=== PATIENT | female | born 1935 ===

== ENCOUNTER 2021-07-30 20:12 | Inpatient (IN) | payer MEDICARE ==
[~2021-07-30] VITALS: Ht 162.6 cm; Wt 57.0 kg
[2021-07-30] MEDS ORDERED: ONDANSETRON 2MG/ML, 2ML IVPush ONE (20:30)
[2021-07-30] MEDS ORDERED: MORPHINE SULFATE 4 MG/ML, 1ML IVPush PRN (20:30)
[2021-07-30 20:49] LABS: BASOPHILS % (AUTO) 0 % (0-1); EOSINOPHILS % (AUTO) 0 % (1-7); LYMPHOCYTES % (AUTO) 10 % (22-44); MEAN CORPUSCULAR HEMOGLOBIN 28.7 pg (27.0-34.8); MEAN CORPUSCULAR HGB CONC 32.8 g/dL (32.4-35.8); MEAN PLATELET VOLUME 8.4 fL (7.4-10.4); MONOCYTES % (AUTO) 5 % (2-9); NEUTROPHILS % (AUTO) 85 % (42-75); PLATELET COUNT 228 x10^3/uL (130-400); RED BLOOD COUNT 4.14 x10^6/uL (3.82-5.3); RED CELL DISTRIBUTION WIDTH 14.4 % (9.6-15.2)
[2021-07-30 20:54] LABS: ALBUMIN 3.5 g/dL (3.4-5.0); ANION GAP 7 mmol/L (5-15); CALCIUM 8.6 mg/dL (8.5-10.1); CHLORIDE 101 mmol/L (98-107); CREATININE 0.88 mg/dL (0.55-1.02)
[2021-07-30] MEDS ORDERED: MORPHINE SULFATE 4 MG/ML, 1ML ONE (21:15)
[2021-07-30] MEDS ORDERED: ONDANSETRON 2MG/ML, 2ML ONE (21:15)
[2021-07-30] MEDS ORDERED: ONDANSETRON 2MG/ML, 2ML IVPush PRN (23:00)
[2021-07-30] MEDS ORDERED: MELATONIN 5 MG TABLET PO PRN (23:00)
[2021-07-30] MEDS ORDERED: GUAIFENESIN/DM 200-20MG, 10ML UDC PO PRN (23:00)
[2021-07-30] MEDS ORDERED: POLYETHYLENE GLYCOL 17 GM PACKET PO PRN (23:00)
[2021-07-30] MEDS ORDERED: LABETALOL 5MG/ML, 20ML IVPush PRN (23:00)
[2021-07-30 23:04] VITALS: BP 182/72
[2021-07-31] MEDS: FAMOTIDINE 20 MG/2 ML IVPush SCH ×2 (00:38→21:12)
[2021-07-31] MEDS: ACETAMINOPHEN 500 MG TABLET PO SCH ×5 (00:40→19:17)
[2021-07-31 02:08] VITALS: BP 170/75
[2021-07-31] MEDS: LACTATED RINGERS 1,000 ML IV SCH ×2 (04:41→19:19)
--- NOTE | 2021-07-31 06:20 | NUR ---
CAITY CRUZ SUPERVISED PLACEMENT OF [place]
[2021-07-31 06:23] LABS: BASOPHILS % (AUTO) 0 % (0-1); EOSINOPHILS % (AUTO) 0 % (1-7); LYMPHOCYTES % (AUTO) 19 % (22-44); MEAN CORPUSCULAR HEMOGLOBIN 29.1 pg (27.0-34.8); MEAN CORPUSCULAR HGB CONC 33.2 g/dL (32.4-35.8); MEAN PLATELET VOLUME 8.2 fL (7.4-10.4); MONOCYTES % (AUTO) 10 % (2-9); NEUTROPHILS % (AUTO) 71 % (42-75); PLATELET COUNT 197 x10^3/uL (130-400); RED BLOOD COUNT 3.85 x10^6/uL (3.82-5.3); RED CELL DISTRIBUTION WIDTH 14.2 % (9.6-15.2)
[2021-07-31 06:29] LABS: ANION GAP 7 mmol/L (5-15); CALCIUM 8.1 mg/dL (8.5-10.1); CHLORIDE 100 mmol/L (98-107)
[2021-07-31 06:30] LABS: CREATININE 0.81 mg/dL (0.55-1.02)
[2021-07-31 08:39] VITALS: BP 125/63
[2021-07-31] MEDS ORDERED: MORPHINE SULFATE 4 MG/ML, 1ML ONE ×2 (09:59→13:32)
[2021-07-31] MEDS: morphine SULFATE 10 MG/ML, 1ML IVPush PRN ×2 (10:03→13:36)
[2021-07-31] MEDS: ENOXAPARIN 40 MG/0.4 ML SQ SCH (10:07)
[2021-07-31 13:44] VITALS: BP 155/78
[2021-07-31 18:18] VITALS: BP 152/77
[2021-07-31] MEDS: KETOROLAC 30 MG/1 ML IV PRN (19:14)
[2021-08-01 01:27] VITALS: BP 172/84
[2021-08-01] MEDS: KETOROLAC 30 MG/1 ML IV PRN (03:34)
[2021-08-01] MEDS: ACETAMINOPHEN 500 MG TABLET PO SCH ×6 (03:34→20:31)
[2021-08-01 07:49] VITALS: BP 160/68
[2021-08-01] MEDS: ENOXAPARIN 40 MG/0.4 ML SQ SCH (08:39)
[2021-08-01 11:14] LABS: MICROSCOPIC NOT IND
[2021-08-01] MEDS ORDERED: CHLORHEXIDINE 15 ML UDC PO ONE (13:30)
[2021-08-01] MEDS ORDERED: FENTANYL PF 100 MCG/2ML ONE ×2 (13:35→15:50)
[2021-08-01] MEDS ORDERED: SUCCINYLCHOLINE 20 MG/ML, 10ML ONE (14:03)
[2021-08-01] MEDS ORDERED: ONDANSETRON 2MG/ML, 2ML ONE (14:03)
[2021-08-01] MEDS ORDERED: DEXAMETHASONE 4 MG/ML, 1ML ONE (14:03)
[2021-08-01] MEDS ORDERED: PROPOFOL 10 MG/ML, 20ML ONE (14:03)
[2021-08-01] MEDS ORDERED: ROCURONIUM 10 MG/ML,10ML ONE (14:03)
[2021-08-01] MEDS ORDERED: CEFAZOLIN 1,000 MG ONE (14:03)
[2021-08-01] MEDS ORDERED: PHENYLEPHRINE 10 MG/ML ONE (14:03)
[2021-08-01] MEDS ORDERED: GLYCOPYRROLATE 0.2MG/1ML, 5ML ONE (14:03)
[2021-08-01] MEDS ORDERED: NEOSTIGMINE 1 MG/ML, 10ML ONE (14:03)
[2021-08-01] MEDS ORDERED: BUPIVACAINE/PF 0.5% INFIL ONE (14:41)
[2021-08-01] MEDS ORDERED: FENTANYL PF 100 MCG/2ML IVPush PRN (16:00)
[2021-08-01] MEDS ORDERED: LABETALOL 5MG/ML, 20ML ONE (16:23)
[2021-08-01] MEDS: LABETALOL 5MG/ML, 20ML IV PRN ×2 (16:26→16:43)
[2021-08-01] MEDS ORDERED: hydrALAzine 20 MG/ML, 1ML IV PRN (16:30)
[2021-08-01] MEDS ORDERED: MEPERIDINE/PF 25MG/0.5ML IVPush PRN (16:30)
[2021-08-01] MEDS ORDERED: FENTANYL PF 100 MCG/2ML IV PRN (16:30)
[2021-08-01] MEDS ORDERED: PROMETHAZINE 25 MG/ML, 1ML IVPush PRN (16:30)
[2021-08-01] MEDS ORDERED: OXYcodone 5 MG/5 ML ORAL.SOL UDC PO PRN (16:30)
[2021-08-01] MEDS ORDERED: OXYcodone 5 MG/5 ML ORAL.SOL UDC ONE (16:55)
[2021-08-01] MEDS ORDERED: hydrALAzine 20 MG/ML, 1ML ONE (17:03)
[2021-08-01 20:09] VITALS: BP 114/53
[2021-08-01] MEDS ORDERED: BRIM5DRO2 RIGHTEYE (20:23)
[2021-08-01] MEDS: FAMOTIDINE 20 MG/2 ML IVPush SCH (20:31)
[2021-08-01] MEDS ORDERED: TELM40TA7 PO (20:36)
[2021-08-01] MEDS: CEFAZOLIN 1,000 MG in DEXTROSE 5% 50 ML IV SCH (21:45)
[2021-08-01] MEDS ORDERED: NEBI10TA3 PO (22:33)
[2021-08-02] VITALS: BP 121/64
[2021-08-02] MEDS: ACETAMINOPHEN 500 MG TABLET PO SCH ×5 (00:26→20:00)
[2021-08-02 04:31] VITALS: BP 149/70
[2021-08-02] MEDS: CEFAZOLIN 1,000 MG in DEXTROSE 5% 50 ML IV SCH (05:48)
[2021-08-02 09:40] VITALS: BP 160/56
[2021-08-02] MEDS: BACLOFEN 10 MG TABLET PO PRN (09:44)
[2021-08-02] MEDS: ENOXAPARIN 40 MG/0.4 ML SQ SCH (09:44)
[2021-08-02] MEDS: KETOROLAC 30 MG/1 ML IV PRN (09:44)
[2021-08-02] MEDS: TIMOLOL OPHTH 0.5%, 5ML RIGHTEYE SCH ×2 (09:45→21:00)
[2021-08-02] MEDS ORDERED: GUAIFENESIN 200 MG TABLET PO SCH (11:00)
[2021-08-02 14:00] VITALS: BP 131/69
[2021-08-02 19:49] VITALS: BP 131/72
[2021-08-02] MEDS: FAMOTIDINE 20 MG TABLET PO SCH (20:38)
[2021-08-03 00:22] VITALS: BP 163/77
[2021-08-03] MEDS: KETOROLAC 30 MG/1 ML IV PRN ×3 (00:53→22:25)
[2021-08-03] MEDS: BACLOFEN 10 MG TABLET PO PRN (00:53)
[2021-08-03] MEDS: ACETAMINOPHEN 500 MG TABLET PO SCH ×3 (01:05→17:06)
[2021-08-03 05:39] LABS: BASOPHILS % (AUTO) 0 % (0-1); EOSINOPHILS % (AUTO) 2 % (1-7); LYMPHOCYTES % (AUTO) 22 % (22-44); MEAN CORPUSCULAR HEMOGLOBIN 29.5 pg (27.0-34.8); MEAN CORPUSCULAR HGB CONC 33.8 g/dL (32.4-35.8); MEAN PLATELET VOLUME 8.7 fL (7.4-10.4); MONOCYTES % (AUTO) 10 % (2-9); NEUTROPHILS % (AUTO) 65 % (42-75); PLATELET COUNT 189 x10^3/uL (130-400); RED BLOOD COUNT 2.98 x10^6/uL (3.82-5.3); RED CELL DISTRIBUTION WIDTH 14.2 % (9.6-15.2)
[2021-08-03 05:48] LABS: ANION GAP 4 mmol/L (5-15); CALCIUM 8.1 mg/dL (8.5-10.1); CHLORIDE 101 mmol/L (98-107)
[2021-08-03 05:49] LABS: CREATININE 0.91 mg/dL (0.55-1.02)
[2021-08-03 08:00] VITALS: BP 160/83
[2021-08-03] MEDS: TIMOLOL OPHTH 0.5%, 5ML RIGHTEYE SCH ×2 (09:00→22:24)
[2021-08-03] MEDS: ENOXAPARIN 40 MG/0.4 ML SQ SCH (10:13)
[2021-08-03 14:25] VITALS: BP 154/77
[2021-08-03] MEDS: LOSARTAN 50MG TABLET PO SCH (17:15)
[2021-08-03 19:42] VITALS: BP 109/63
[2021-08-03] MEDS: NEBIVOLOL HCL 5 MG TABLET PO SCH (22:22)
[2021-08-03] MEDS: FAMOTIDINE 20 MG TABLET PO SCH (22:23)
[2021-08-04 02:09] VITALS: BP 163/74
[2021-08-04] MEDS: ACETAMINOPHEN 500 MG TABLET PO SCH ×2 (03:11→10:45)
[2021-08-04 06:30] VITALS: BP 158/74
[2021-08-04] MEDS ORDERED: PINK LADY ENEMA 490 ML BOTTLE PR SCH (09:00)
[2021-08-04] MEDS: NEBIVOLOL HCL 5 MG TABLET PO SCH (09:00)
[2021-08-04] MEDS: TIMOLOL OPHTH 0.5%, 5ML RIGHTEYE SCH (09:00)
[2021-08-04] MEDS: LOSARTAN 50MG TABLET PO SCH (09:30)
[2021-08-04] MEDS: ENOXAPARIN 40 MG/0.4 ML SQ SCH (09:31)
[2021-08-04 09:41] VITALS: BP 100/45
[2021-08-04 10:24] LABS: BASOPHILS % (AUTO) 1 % (0-1); EOSINOPHILS % (AUTO) 6 % (1-7); LYMPHOCYTES % (AUTO) 21 % (22-44); MEAN CORPUSCULAR HEMOGLOBIN 29.3 pg (27.0-34.8); MEAN CORPUSCULAR HGB CONC 33.3 g/dL (32.4-35.8); MEAN PLATELET VOLUME 8.5 fL (7.4-10.4); MONOCYTES % (AUTO) 10 % (2-9); NEUTROPHILS % (AUTO) 63 % (42-75); PLATELET COUNT 196 x10^3/uL (130-400); RED CELL DISTRIBUTION WIDTH 14.5 % (9.6-15.2)
[2021-08-04] MEDS ORDERED: TRAM50TA2 PO (11:34)
[2021-08-04 13:46] VITALS: BP 112/51
== END 2021-08-04 16:12 | DRG 481 ==
LOC: ED 22:42 → EDIP 22:43 → 4NE 22:49
PROVIDERS: ADMIT Internal Medicine; ATTEND Hospitalist
PROC: 0T9B70Z Drainage of Bladder with Drainage Device, Via Natural or Artificial Opening (ICD-10-PCS; 2021-08-01)
PROC: 0QS604Z Reposition Right Upper Femur with Internal Fixation Device, Open Approach (ICD-10-PCS; principal; 2021-08-01 14:00)
DX: S72.144A Nondisplaced intertrochanteric fracture of right femur, initial encounter for closed fracture (principal); D62 Acute posthemorrhagic anemia; W18.39XA Other fall on same level, initial encounter; Z20.822 Contact with and (suspected) exposure to COVID-19; R73.9 Hyperglycemia, unspecified; I10 Essential (primary) hypertension; H40.9 Unspecified glaucoma; Y93.89 Activity, other specified; Y99.8 Other external cause status; Y92.009 Unspecified place in unspecified non-institutional (private) residence as the place of occurrence of the external cause
CPT/HCPCS: 36415; 71045; 76000; 80048; 81003; 82040; 83735; 85025; 87635; 93005; 96365; 96368; 96374; 96375; 99285; 99291; C1713; G0378; J0690; J1100; J1650; J1885; J2405; J2704; J2710; J3010; C1769; C1776; J0330; J0360; J2270; J2370; J7120